=== PATIENT | female | born 1945 | race Caucasian/White ===

== ENCOUNTER → 2021-02-13 01:27 | Outpatient (CLI) | payer MEDICARE, SELFPAY ==
[2021-02-13 18:53] LABS: SARS-CoV-2 RNA PCR Negative
== END ==
PROVIDERS: PCP Hospitalist; Visit Provider Internal Medicine Gastroenterology
DX: Z01.812 Encounter for preprocedural laboratory examination (principal); Z20.822 Contact with and (suspected) exposure to COVID-19
CPT/HCPCS: C9803; U0003; U0005

== ENCOUNTER 2021-02-17 02:46 | Day surgery (SDC) | payer MEDICARE, SELFPAY ==
[2021-02-04 14:32] VITALS: BMI 21.7
[2021-02-17 06:27] VITALS: BP 137/83; PULSE 117; RESP 16; TEMP 36.2; O2SAT 99; BMI 21.2
[2021-02-17] MEDS: LACTATED RINGERS 1,000 ML 150 ML IV CONT (06:35)
--- NOTE | 2021-02-17 07:00 | PM.HPGS ---
History of Present Illness History of Present Illness Consent: Risks, benefits, and alternatives have been discussed and questions answered. Patient agrees to proceed with procedure. Chief complaint: family hx of colon ca Narrative: Larissa Barnes is a 76 year old female For for colon cancer screening. She does have a family history of colon cancer Review of Systems Review of Systems: All systems reviewed & are unremarkable except as noted in HPI and below PMFSH Social History Social History Smoking status: Never smoker Alcohol intake: former Drinks per week: 1 Substance use: never Substance use type: does not use Living arrangements: with family Gender identity (if verbalized by the patient): Female Spiritual care concerns: No Meds Home Medications and Allergies Home Medications Medication Instructions Recorded Confirmed Type alprazolam 0.5 mg PO DAILY 02/04/21 02/17/21 History aspirin 81 mg PO DAILY 02/04/21 02/17/21 History lisinopril 20 mg PO DAILY 02/04/21 02/17/21 History nifedipine 90 mg PO DAILY 02/04/21 02/17/21 History potassium chloride [Klor-Con M20] 20 meq PO DAILY 02/04/21 02/04/21 History Allergies Allergy/AdvReac Type Severity Reaction Status Date / Time No Known Allergies Allergy Verified 02/17/21 06:26 Vital Signs Vital Signs - 24 hr 02/17/21 06:27 Temperature 36.2 C L Pulse Rate 117 H Respiratory Rate 16 Blood Pressure 137/83 Pulse Oximetry 99 Exam Resp: Auscultation: clear to auscultation bilaterally Cardio: Rate: regular rate Rhythm: regular rhythm GI: GI Palp: Yes Soft to palpation and No Tenderness to palpation present (GI) Assessment and Plan Assessment and plan (1) Colon cancer screening: Code(s): Z12.11 - Encounter for screening for malignant neoplasm of colon Status: Acute Assessment and Plan: Colonoscopy with possible biopsy or polypectomy or cautery or injection of substances.
--- NOTE | 2021-02-17 07:04 | WPDANESEPPF ---
Anes - Initial Pre Proc Eval Procedure: Operation Date: 02/17/21 07:30 Proposed Procedures p Screening Colonoscopy - Ray Mata MD Date/Time: 02/17/21 07:04 Surgeon: Ray Mata MD Pre Op Diagnosis: family hx of colon ca Patient Data Age: 76 Gender: F Height: 5 ft 6 in Weight: 59.6 kg Last Vital Signs Temp 97.1 F L 02/17/21 06:27 Pulse 117 H 02/17/21 06:27 Resp 16 02/17/21 06:27 BP 137/83 02/17/21 06:27 Pulse Ox 99 02/17/21 06:27 Allergies Allergy/AdvReac Type Severity Reaction Status Date / Time No Known Allergies Allergy Verified 02/17/21 06:26 Home Medications Medication Instructions Recorded Confirmed Type alprazolam 0.5 mg PO DAILY 02/04/21 02/17/21 History aspirin 81 mg PO DAILY 02/04/21 02/17/21 History lisinopril 20 mg PO DAILY 02/04/21 02/17/21 History nifedipine 90 mg PO DAILY 02/04/21 02/17/21 History potassium chloride [Klor-Con M20] 20 meq PO DAILY 02/04/21 02/04/21 History Patient hx anesthesia problems: none Family hx anesthesia problems: none [facility] Past Medical History Medical History (Updated 02/17/21 @ 07:02 by Sheng Edmondson MD) Hypertension Social History Social History Smoking status: Never smoker Alcohol intake: former Drinks per week: 1 Substance use: never Substance use type: does not use Living arrangements: with family Gender identity (if verbalized by the patient): Female Spiritual care concerns: No Anes - Eval Final PreProcedure Day of Procedure 02/17/21 07:04 Patient weight: normal Heart: regular rate and rhythm Lungs: clear to auscultation Airway: Mallampati scale class II Neurological: alert and oriented Last oral intake: >/= 8 hours ASA classification: II Emergent: no Anesthetic plan: proceed Anesthesia type and monitoring: general GIVS and standard monitoring Informed Consent: The patient's anesthetic plan and its attendant risks and benefits were discussed with the patient/family/POA. Questions were solicited and answers provided to the satisfaction of the patient/family/POA.
[2021-02-17 07:45] VITALS: BP 93/59; PULSE 73; RESP 17; O2SAT 95
[2021-02-17 07:55] VITALS: BP 103/59; PULSE 75; RESP 19; O2SAT 97
[2021-02-17 08:05] VITALS: BP 104/62; PULSE 74; RESP 20; O2SAT 98
== END 2021-02-17 08:11 | disposition home or self-care (01) ==
PROVIDERS: PCP Physician Assistant; Visit Provider Internal Medicine Gastroenterology
PROC: 0DJD8ZZ Inspection of Lower Intestinal Tract, Via Natural or Artificial Opening Endoscopic (ICD-10-PCS; CPT 45378; principal; 2021-02-17 07:30)
DX: Z12.11 Encounter for screening for malignant neoplasm of colon (principal); K52.9 Noninfective gastroenteritis and colitis, unspecified; K57.30 Diverticulosis of large intestine without perforation or abscess without bleeding; Z80.0 Family history of malignant neoplasm of digestive organs; I10 Essential (primary) hypertension; Z79.82 Long term (current) use of aspirin
CPT/HCPCS: 45380; 88305; C9803; J2704; J7120; U0003; U0005

== ENCOUNTER → 2021-11-08 14:02 | Outpatient (CLI) | payer MEDICARE, SELFPAY ==
--- NOTE | ~2021-11-08 | XR_ITS ---
EXAMINATION: XR hip RT min 2V DATE: 11/08/2021 14:17 INDICATION: Right hip pain. TECHNIQUE: 2 views of right hip were obtained. COMPARISON: None. FINDINGS: Bone alignment is normal. No fracture. There is mild right hip osteoarthritis. IMPRESSION: 1. Mild right hip osteoarthritis. Reviewed, dictated and finalized at location A. [employer]
== END ==
PROVIDERS: PCP Family Medicine; Visit Provider Physician Assistant
DX: M17.11 Unilateral primary osteoarthritis, right knee (principal)
CPT/HCPCS: 73502

== ENCOUNTER → 2022-10-11 11:46 | Outpatient (CLI) | payer MEDICARE, SELFPAY ==
--- NOTE | ~2022-10-11 | XR_ITS ---
XR abdomen/kub 1V DATE: 10/11/2022 11:53 INDICATION: Dysuria TECHNIQUE: 2 AP views COMPARISON: None FINDINGS: There is a moderately prominent amount of fecal material within the colon but no evidence o f bowel obstruction. The psoas shadows are intact. No visceromegaly or abnormal calcification is dete cted. The lung bases are clear. Heart size appears normal. Diffuse osteopenia. There is osteoarthritic change at the hip joints. Occasional probable bone islands. IMPRESSION: Moderately prominent amount of fecal material in the colon; no bowel obstruction Reviewed, dictated and finalized at Location A. Reviewed, dictated and finalized at location B. E [employer]IM[employer]ERINARIAN IMPRESSION: Moderately prominent amount of fecal material in the colon; no bob l obstruction
== END ==
PROVIDERS: PCP Physician Assistant; Visit Provider Physician Assistant
DX: R30.0 Dysuria (principal); N30.01 Acute cystitis with hematuria
CPT/HCPCS: 74018

== ENCOUNTER 2024-02-14 14:43 | Outpatient (CLI) | payer MEDICARE, SELFPAY ==
--- NOTE | ~2024-02-14 | XR_ITS ---
XR knee LT min 4V 02/14/2024 15:04 Indication: Left knee pain Procedure: 4 views left knee Comparison: No prior studies for comparison. Findings: There is mild tricompartment osteoarthritis of the left knee. No fracture, subluxation or d islocation. No significant joint effusion. Small loose bodies along the posterior joint space. 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 Reviewed, dictated and finalized at location A. 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
== END 2024-02-14 14:44 ==
LOC: MICIMG 14:43
PROVIDERS: PCP Family Medicine; Visit Provider Physician Assistant
DX: M25.562 Pain in left knee (principal); M17.12 Unilateral primary osteoarthritis, left knee
CPT/HCPCS: 73564

== ENCOUNTER 2025-06-09 14:10 | Outpatient (CLI) | payer MEDICARE, SELFPAY ==
--- NOTE | ~2025-06-09 | DEXA_ITS ---
Bone Density Report Name: MARGUERITE HARRELL Age: 80 Sex: Female Ethnicity: White Date of : 1945 Indication: osteopenia; height loss; Referring Provider: MALENA, ELIZA Lozano Study: Bone densitometry was performed. Exam Date: June 09, 2025 Accession number: [id number] Bone Density: Region BMD T-score Z-score Classification AP Spine(L1-L4) 0.882 -1.5 1.1 Osteopenia Femoral Neck (Left) 0.576 -2.5 -0.2 Osteoporosis Total Hip (Left) 0.668 -2.2 -0.3 Osteopenia Femoral Neck (Right) 0.565 -2.6 -0.3 Osteoporosis Total Hip (Right) 0.711 -1.9 0.1 Osteopenia Total Hip Mean 0.689 -2.1 -0.1 Osteopenia World Health Organization criteria for BMD impression classify patients as: Normal (T-score at or above -1.0), Osteopenia (T-score between -1.0 and -2.5), or Osteoporosis (T-score at or below -2.5). 10-year Fracture Risk: FRAX not reported because: Some T-score for Spine Total or Hip Total or Femoral Neck at or below -2.5 Previous Exams: -- Region Exam Age BMD T-score BMD Change BMD Change Date g/cm2 vs Baseline vs Previous -- AP Spine (L1-L4) 06/09/2025 80 0.882 -1.5 -3.5%# -3.5%# 03/22/2012 67 0.914 -1.2 Total Hip(Left) 06/09/2025 80 0.668 -2.2 -15.9%# -15.9%# 03/22/2012 67 0.794 -1.2 Total Hip(Right) 06/09/2025 80 0.711 -1.9 -15.8%# -15.8%# 03/22/2012 67 0.844 -0.8 -- *Denotes significance at 95% confidence level, LSC for AP Spine = 0.022 g/cm2, LSC for Total Hip = 0.027 g/cm2 # Denotes dissimilar scan types or analysis methods Clinical Information Provided by Patient: Has used the following medications: Vitamin D, Calcium Patient maximum height was 67 Menopause Age: 54 Drinks caffeinated beverages Onset of menses at age 15 Number of children 2 Impression: The patient has osteoporosis, based on the Right Femoral Neck T-score. Unable to evaluate interval change due to the use of different scan modes. Discussion: INCREASED RISK OF FRACTURE. BONE DENSITY IS UNDESIRABLY LOW AT ONE OR MORE SKELETAL SITES, CONSISTENT WITH POSTMENOPAUSAL OSTEOPOROSIS. This patient's lowest T-score meets the World Health Organization's (WHO) criteria for osteoporosis at one or more sites (T-score -2.5 or below). In untreated patients, the risk of osteoporotic fracture increases approximately two-fold for each 1.0 SD decrease in T-score. Low bone density is not the only risk factor for fracture; also consider factors such as patient's age, frailty or poor health, risk of falling, risk of injury, previous osteoporotic fracture, family history of osteoporosis, cigarette smoking, low body weight, etc. Not everyone with low bone mineral density has osteoporosis; osteomalacia and other metabolic bone disorders should also be considered. Patients who have osteoporosis should be evaluated for specific diseases and conditions (secondary causes) that may cause or contribute to bone loss. The [place] [employer]ocr[employer] (AACE) and National Osteoporosis Foundation (NOF) recommend pharmacologic intervention for all postmenopausal women whose T-score is in this range. The patient should follow a healthful lifestyle (good nutrition with adequate calcium and vitamin D, and appropriate weight-bearing exercise). Follow-Up: Consider a repeat BMD and Vertebral Fracture Assessment (VFA) exam in 2 years or sooner if medically necessary, to reassess this patient's status. Reported by: SPENCER on 06/09/2025 2:39:00 PM. Reviewed, dictated and finalized at location A.
== END 2025-06-09 14:11 | disposition home or self-care (01) ==
LOC: MICIMG 14:12
PROVIDERS: PCP Student in an Organized Health Care Education/Training Program; Visit Provider Student in an Organized Health Care Education/Training Program
DX: M81.0 Age-related osteoporosis without current pathological fracture (principal); M85.89 Other specified disorders of bone density and structure, multiple sites; Z78.0 Asymptomatic menopausal state
CPT/HCPCS: 77080